=== PATIENT | female | born 1975 | race Caucasian/White ===

== ENCOUNTER 2018-05-26 20:54 | Emergency (ER) | payer MEDICAID ==
[~2018-05-26] VITALS: Ht 160 cm; Wt 128.5 kg
[~2018-05-26 20:54] MED LIST: GLIM1TAB2 PO; INSU100V5 SQ-INSULIN; INSU100V8 SQ; LEVO112T4 PO; LEVO75TA8; OMEG-14 PO; OMNICEF
[2018-05-26 21:02] VITALS: BP 130/82
== END 2018-05-26 23:05 | disposition home or self-care (01) ==
LOC: ED 22:34
DX: H61.21 Impacted cerumen, right ear (principal); K08.89 Other specified disorders of teeth and supporting structures; E66.01 Morbid (severe) obesity due to excess calories; E11.65 Type 2 diabetes mellitus with hyperglycemia; E03.9 Hypothyroidism, unspecified; Z68.43 Body mass index [BMI] 50.0-59.9, adult
CPT/HCPCS: 99283

== ENCOUNTER 2020-03-31 17:36 | Emergency (ER) | payer MEDICAID ==
[~2020-03-31] VITALS: Ht 162.6 cm; Wt 128.4 kg
[~2020-03-31 17:36] MED LIST changes: -GLIM1TAB2 PO; +GLIM1TAB7 PO
--- NOTE | 2020-03-31 18:06 | NUR ---
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
--- NOTE | 2020-03-31 18:19 | NUR ---
PT BIB EMS FOR NEAR SYNCOPLE EPISODE AFTER STANDING UP. 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 EKG COMPLETE. PT CONNECTED TO ALL MONITORING EQUIPMENT.
--- NOTE | 2020-03-31 18:51 | NUR ---
BEDSIDE REPORT RECEIVED FROM HAYLEY SYED
--- NOTE | 2020-03-31 18:55 | NUR ---
LAB AT BEDSIDE. PT SITTING UPRIGHT, NAD, VSS. PT DENIES ANY NEEDS AT THIS TIME. CALL LIGHT AND PERSONAL BELONGINGS WITHIN REACH.
[2020-03-31 19:04] LABS: BASOPHILS % (AUTO) 1 % (0-1); EOSINOPHILS % (AUTO) 2 % (1-7); LYMPHOCYTES % (AUTO) 27 % (22-44); MEAN CORPUSCULAR HEMOGLOBIN 19.6 pg (27.0-34.8); MONOCYTES % (AUTO) 9 % (2-9); NEUTROPHILS % (AUTO) 61 % (42-75); PLATELET COUNT 224 x10^3/uL (130-400); RED BLOOD COUNT 5.04 x10^6/uL (3.82-5.3); RED CELL DISTRIBUTION WIDTH 17.9 % (9.6-15.2)
[2020-03-31 19:12] LABS: MD MORPH REVIEW ONLY
[2020-03-31 19:15] LABS: ALANINE AMINOTRANSFERASE 23 U/L (12-78); ALBUMIN 3.3 g/dL (3.4-5.0); ANION GAP 2 mmol/L (5-15); CALCIUM 8.9 mg/dL (8.5-10.1); CHLORIDE 107 mmol/L (98-107); CREATININE 0.63 mg/dL (0.55-1.02)
[2020-03-31 19:19] LABS: ALKALINE PHOSPHATASE 90 U/L (45-117); BILIRUBIN,TOTAL 0.4 mg/dL (0.2-1.0); TOTAL PROTEIN 7.7 g/dL (6.4-8.2); TROPONIN I < 0.015 ng/mL (0.000-0.045)
[2020-03-31 19:44] LABS: ANISOCYTOSIS 1+; MICROCYTOSIS 2+; POLYCHROMASIA 1+
[2020-03-31 19:45] LABS: <PLATELET ESTIMATE> ADEQUATE; <PLT MORPHOLOGY> NORMAL PLT MORPH
--- NOTE | 2020-03-31 20:22 | NUR ---
PT UP TO BEDSIDE COMMODE WITH THIS RN TO PROVIDE URINE SAMPLE. PT REPORTS MILD DIZZINESS WHEN STANDING. PT RETURNED TO [facility] VSS. PT DENIES ANY NEEDS AT THIS TIME.
[2020-03-31 21:06] LABS: MICROSCOPIC INDICATED
[2020-03-31 21:56] VITALS: BP 136/75
--- NOTE | 2020-03-31 22:01 | NUR ---
Patient given discharge instructions and they have confirmed that they understand the instructions. Patient ambulatory with steady gait.
== END 2020-03-31 22:02 | disposition home or self-care (01) ==
LOC: ED 21:13
DX: N39.0 Urinary tract infection, site not specified (principal); B37.3 Candidiasis of vulva and vagina; E86.0 Dehydration; R55 Syncope and collapse; R00.2 Palpitations; R42 Dizziness and giddiness; R07.89 Other chest pain; R11.0 Nausea; E11.65 Type 2 diabetes mellitus with hyperglycemia; E03.9 Hypothyroidism, unspecified; E66.01 Morbid (severe) obesity due to excess calories; Z68.42 Body mass index [BMI] 45.0-49.9, adult
CPT/HCPCS: 36415; 71045; 80053; 81001; 84484; 85025; 87086; 87186; 93005; 99285

== ENCOUNTER 2020-08-19 12:46 | Emergency (ER) | payer MEDICAID ==
[~2020-08-19] VITALS: Ht 162.6 cm; Wt 125.7 kg
[2020-08-19] MEDS ORDERED: SODIUM CHLORIDE FLUSH 10ML SYR IVF ONE (13:30)
[2020-08-19] MEDS ORDERED: FAMOTIDINE 20 MG/2 ML IVPush ONE (13:30)
[2020-08-19] MEDS ORDERED: ONDANSETRON 2MG/ML, 2ML IVPush ONE (13:30)
[2020-08-19 13:39] LABS: BASOPHILS % (AUTO) 1 % (0-1); EOSINOPHILS % (AUTO) 1 % (1-7); LYMPHOCYTES % (AUTO) 21 % (22-44); MEAN CORPUSCULAR HEMOGLOBIN 21.2 pg (27.0-34.8); MEAN CORPUSCULAR HGB CONC 30.9 g/dL (32.4-35.8); MEAN PLATELET VOLUME 9.2 fL (7.4-10.4); MONOCYTES % (AUTO) 6 % (2-9); NEUTROPHILS % (AUTO) 70 % (42-75); PLATELET COUNT 238 x10^3/uL (130-400); RED BLOOD COUNT 5.06 x10^6/uL (3.82-5.3); RED CELL DISTRIBUTION WIDTH 19.2 % (9.6-15.2)
[2020-08-19 13:50] LABS: ALANINE AMINOTRANSFERASE 16 U/L (12-78); ALBUMIN 3.3 g/dL (3.4-5.0); CALCIUM 8.5 mg/dL (8.5-10.1); CHLORIDE 107 mmol/L (98-107); CREATININE 0.73 mg/dL (0.55-1.02)
[2020-08-19 13:54] LABS: ALKALINE PHOSPHATASE 101 U/L (45-117); BILIRUBIN,TOTAL 0.3 mg/dL (0.2-1.0); TROPONIN I < 0.015 ng/mL (0.000-0.045)
[2020-08-19 13:57] LABS: ANION GAP 4 mmol/L (5-15)
[2020-08-19 14:14] LABS: FREE T4 (FREE THYROXINE) 0.96 ng/dL (0.76-1.46)
[2020-08-19 14:25] LABS: <RBC MORPHOLOGY> NORMAL; MD MORPH REVIEW ONLY
[2020-08-19 14:26] LABS: ANISOCYTOSIS 1+; MICROCYTOSIS 2+
[2020-08-19 14:28] LABS: OVALOCYTES 1+
[2020-08-19 14:29] LABS: HYPOCHROMIA 2+; POLYCHROMASIA 1+
[2020-08-19 14:32] LABS: <PLATELET ESTIMATE> ADEQUATE; <PLT MORPHOLOGY> NORMAL PLT MORPH
--- NOTE | 2020-08-19 14:43 | NUR ---
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
--- NOTE | 2020-08-19 14:45 | NUR ---
PT HAS CO W LOWER ABDOMINAL PAIN AND UNSTEADY GAIT FOR 3 DAYS. DENIES N/V.
--- NOTE | 2020-08-19 16:35 | NUR ---
PT BACK FROM CT
--- NOTE | 2020-08-19 16:41 | NUR ---
PT RESTING, DENIES N/V. ABDOMINAL PAIN CONSISTENT. DENIES NEED FOR MEDICATION
[2020-08-19 16:42] VITALS: BP 129/81
--- NOTE | 2020-08-19 17:33 | NUR ---
Patient given discharge instructions and they have confirmed that they understand the instructions. Patient ambulatory with steady gait.
== END 2020-08-19 17:34 | disposition home or self-care (01) ==
LOC: ED 14:49
DX: R10.13 Epigastric pain (principal); R42 Dizziness and giddiness; E11.9 Type 2 diabetes mellitus without complications; E03.9 Hypothyroidism, unspecified
CPT/HCPCS: 36415; 70450; 71045; 76700; 80053; 83690; 84439; 84443; 84484; 85025; 93005; 99285